=== PATIENT | male | born 1985 | race Caucasian/White ===

== ENCOUNTER 2017-08-12 09:52 | Emergency (ER) | payer SELFPAY ==
[2017-08-12] MEDS: HYDROcodone/APAP 7.5/325MG 1 TAB TABLET PO (10:21)
[2017-08-12] MEDS: IBUPROFEN 800 MG TABLET. PO (10:21)
== END 2017-08-12 10:53 | disposition home or self-care (01) ==
LOC: ER 09:52
DX: M25.512 Pain in left shoulder (principal); W18.39XA Other fall on same level, initial encounter; Y93.89 Activity, other specified; Y99.8 Other external cause status; Y92.89 Other specified places as the place of occurrence of the external cause
CPT/HCPCS: 73030; 99284